=== PATIENT | male | born 1980 | race Caucasian/White ===

== ENCOUNTER 2017-07-17 16:31 | Inpatient (IN) ==
[2017-07-17] MEDS ORDERED: *HR* FentaNYL (PF) 100 MCG/2 ML VIAL IVP ONE ×2 (16:46→19:06)
[2017-07-17] MEDS ORDERED: Ondansetron 4 MG/2 ML VIAL IVP ONE ×2 (16:46→19:06)
--- NOTE | 2017-07-17 16:48 | Emergency Department Note ---
Disposition Clinical Impression: Fever of unknown origin, SIRS (systemic inflammatory response syndrome) Disposition: Home, Self-Care Condition: Undetermined Referrals: NONE,PCP [Primary Care Provider] - Forms: ED Satisfaction Letter, Work/School Release General Adult HPI - General Chief complaint: ED Abdominal Pain Stated complaint: Abdominal Pain Time Seen by Provider: 07/17/17 16:40 - History of Present Illness HPI Narrative: 37M PMHx hypertension currently not on any medications presents with abdominal pain and fever starting at 0300. Patient reports that abd pain was sudden and woke him up, constant, diffuse, does not radiate. He also admits to bilous vomiting x2, unable to keep anything down. Last bowel movement was yesterday and was of normal consistency. Admits to fever of 103F, headaches, numbness of extremities. He denies chest pain, SOB, dysuria. Denies sick contacts. Patient did not have the flu vaccine this year. He denies recent travel. 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 Chronic smoker 20+ years, denies alcohol or IV drug use. Had usual dinner last night. Cannot recall anything that could have caused his sudden abdominal pain. - Related Data Previous Rx's Medication Instructions Recorded Ibuprofen 800 mg PO Q8HR PRN #30 tablet 02/14/17 predniSONE [PredniSONE] 20 mg PO DAILY #18 tablet 02/14/17 Allergies Allergy/AdvReac Type Severity Reaction Status Date / Time No Known Allergies Allergy Verified 07/17/17 16:43 Constitutional: Reports: as per HPI Cardiovascular: Denies: chest pain, palpitations Respiratory: Denies: cough Gastrointestinal: Reports: abdominal pain (diffuse), vomiting Musculoskeletal: Denies: neck pain Neurological: Reports: headache, numbness. Denies: confusion Past Medical History - Past Medical History Medical history: Reports: hypertension Psychiatric history: Reports: no psych history - Social History Smoking Status: Current every day smoker Smokeless Tobacco Status: No Alcohol use: Reports: none Drug use: Reports: none Physical Exam - General Limitations: no limitations General appearance: alert, in distress, obese - Head Head exam: atraumatic, normocephalic, normal inspection - Eye Eye exam: Present: normal appearance, EOMI - Expanded Eye Exam Pupils: Left: reactive - ENT ENT exam: other (erythematous throat) - Expanded ENT Exam External ear exam: Present: normal external inspection Mouth exam: Present: normal external inspection Teeth exam: Present: normal inspection Throat exam: Present: muffled voice - Neck Neck exam: Present: normal inspection, full ROM, trachea midline - Chest Chest inspection: Present: normal inspection, symmetric chest wall rise - Respiratory Respiratory exam: Present: normal lung sounds bilaterally - Cardiovascular Cardiovascular exam: Present: normal rhythm, tachycardia, normal heart sounds - Abdominal Exam Abdominal exam: Present: soft, Non-Tender. Absent: tenderness, distention, guarding, rebound, rigidity - Extremities Exam Extremities exam: Present: normal inspection, full ROM. Absent: tenderness, pedal edema - Expanded Upper Extremity Exam Shoulder exam: Present: normal inspection, full ROM Arm exam: Present: normal inspection, full ROM Elbow exam: Present: normal inspection, full ROM Forearm/Wrist exam: Present: normal inspection, full ROM Hand exam: Present: normal inspection, full ROM Vascular exam: Normal: capillary refill, radial pulse - Expanded Lower Extremity Exam Hip/Pelvis exam: Present: normal inspection, full ROM Upper leg exam: Present: normal inspection, full ROM Knee exam: Present: normal inspection, full ROM Lower leg exam: Present: normal inspection, full ROM Ankle exam: Present: normal inspection, full ROM Foot/toe exam: Present: normal inspection, full ROM Neurovascular/Tendon exam: Absent: motor deficit, sensory deficit, tendon deficit - Back Exam Back exam: Present: normal inspection, full ROM. Absent: tenderness - Neurological Exam Neurological exam: Present: alert, oriented X3 - Expanded Neurological Exam Patient oriented to: Present: person, place, time Coma Scale Eye Opening: Spontaneous Coma Scale Motor Response: Obeys Commands Coma Scale Verbal Response: Oriented Coma Scale Total: 15 - Psychiatric Psychiatric exam: Present: normal affect, normal mood - Skin Skin exam: Present: warm, dry, intact, normal color Course Course Narrative: Patient meets SIRS criteria with tachycardia, 103F, unknown source of infection. Lactate normal. EKG with sinus tachycardia. WBC = 21 noted. BCx, UA, CXR, CT abd/pelvis with contrast pending to determine source of infection. - Reevaluation(s) Reevaluation #1: CT abd/pelvis unremarkable. Patient is currently more concerned about his headache than his abdominal pain. new onset blurry vision. CT head pending. Will consider LP if CT head negative. Time: 18:00 Reevaluation #2: CT Head likely meningitis. Consent for LP signed. Start on one dose Ceftriaxone and Acyclovir. Time: 19:00 Reevaluation #3: Lumbar puncture performed at L2/L3. Clear fluid observed. Pending pathology. Recommend admission if LP positive and for patient to follow-up tomorrow if LP is negative. Vital Signs Temperature 103.0 F H 07/17/17 16:33 Pulse Rate 115 07/17/17 16:33 Respiratory Rate 20 07/17/17 16:33 Blood Pressure 167/99 07/17/17 16:33 O2 Sat by Pulse Oximetry 95 07/17/17 16:33 Temperature 103.0 F H 07/17/17 16:33 Pulse Rate 98 07/17/17 20:37 Respiratory Rate 16 07/17/17 20:37 Blood Pressure 137/87 07/17/17 20:37 O2 Sat by Pulse Oximetry 98 07/17/17 20:37 Oxygen Delivery Oxygen Delivery Room Air Procedures - Lumbar Puncture Consent Obtained: written consent Time Out Performed: Yes Patient Position: upright Skin Prep: Povidone-Iodine 1% Local Anesthetic: lidocaine 1% Amount of anesthesia used (mL): 5 Spinal Needle Gauge: 20G Interspace Used: L3-L4 Fluid Initially Obtained: clear Complications: Need to have other Practitioner Attempt Medical Decision Making - Lab Data Result diagrams: 07/17/17 17:01 07/17/17 17:01 Lab Results 07/17/17 07/17/17 07/17/17 Range/Units 17:01 17:01 17:01 WBC 21.0 H (4.3-11.1) K/mcL RBC 4.99 (4.19-5.50) M/mcL Hgb 14.1 (12.9-16.9) g/dL Hct 42.1 (37.5-50.1) % MCV 84.4 (83.0-100.0) fL MCH 28.3 (28.0-33.3) pg MCHC 33.5 (31.6-35.5) g/dL RDW 14.2 (11.5-14.5) % Plt Count 246 (140-400) K/mcL MPV 10.8 (9.4-12.4) fL Immature Gran % 1.1 (0-4) % Seg Neutrophils % 88.0 % Lymphocytes % 6.3 % Monocytes % 4.5 % Eosinophils % 0.0 % Basophils % 0.1 % Neutrophils # 18.4 H (1.6-8.9) K/mcL Lymphocytes # 1.3 (0.6-4.6) K/mcL Monocytes # 1.0 (0.0-1.3) K/mcL Eosinophils # 0.0 (0.0-0.6) K/mcL Basophils # 0.0 (0.0-0.2) K/mcL Sodium 134 L (136-145) mEq/L Potassium 3.6 (3.5-5.1) mEq/L Chloride 99 (98-107) mEq/L Carbon Dioxide 26 (23-29) mEq/L BUN 11 (6-20) mg/dL Creatinine 0.78 (0.70-1.30) mg/dL Est GFR ( Amer) > 60 (> 60) Est GFR (Non-Af Amer) > 60 (> 60) BUN/Creatinine Ratio 14 (6-26) Glucose 121 H (70-105) mg/dL Calculated Osmolality 279 L (280-300) Lactic Acid 2.1 (0.5-2.2) mmol/L Calcium 9.1 (8.6-10.3) mg/dL Magnesium 1.6 (1.6-2.6) mg/dL Total Bilirubin 0.6 (0.3-1.0) mg/dL Direct Bilirubin 0.1 (0.0-0.2) mg/dL Indirect Bilirubin 0.5 (0.0-1.2) mg/dL AST 14 (13-39) Units/L ALT 16 (7-52) Units/L Alkaline Phosphatase 92 (34-104) Units/L Troponin I 0.03 (< 0.04) ng/mL Serum Total Protein 7.7 (6.4-8.9) g/dL Albumin 4.4 (3.5-5.7) g/dL Globulin 3.3 (2.4-3.5) g/dL Albumin/Globulin Ratio 1.3 (1.1-2.2) Lipase 7 L (11-82) Units/L Urine Color (Yellow) Urine Clarity (Clear) Urine pH (5.0-8.0) pH Units Ur Specific [place] (1.010-1.025) Urine Protein (Neg-Trace) mg/dL Urine Glucose (UA) (Normal) mg/dL Urine Ketones (Negative) mg/dL Urine Blood (Negative) Urine Nitrite (Negative) Urine Bilirubin (Negative) Urine Urobilinogen (Normal) mg/dL Ur Leukocyte Esterase (Negative) Urine Microscopic RBC (0-3) per hpf Urine Microscopic WBC (0-3) per hpf Ur Squamous Epith Cells (None-Few) per lpf Urine Bacteria (None-Few) per hpf Hyaline Casts (None-Few) per lpf Ur Culture Indicated? (NO) 07/17/17 Range/Units 17:29 WBC (4.3-11.1) K/mcL RBC (4.19-5.50) M/mcL Hgb (12.9-16.9) g/dL Hct (37.5-50.1) % MCV (83.0-100.0) fL MCH (28.0-33.3) pg MCHC (31.6-35.5) g/dL RDW (11.5-14.5) % Plt Count (140-400) K/mcL MPV (9.4-12.4) fL Immature Gran % (0-4) % Seg Neutrophils % % Lymphocytes % % Monocytes % % Eosinophils % % Basophils % % Neutrophils # (1.6-8.9) K/mcL Lymphocytes # (0.6-4.6) K/mcL Monocytes # (0.0-1.3) K/mcL Eosinophils # (0.0-0.6) K/mcL Basophils # (0.0-0.2) K/mcL Sodium (136-145) mEq/L Potassium (3.5-5.1) mEq/L Chloride (98-107) mEq/L Carbon Dioxide (23-29) mEq/L BUN (6-20) mg/dL Creatinine (0.70-1.30) mg/dL Est GFR ( Amer) (> 60) Est GFR (Non-Af Amer) (> 60) BUN/Creatinine Ratio (6-26) Glucose (70-105) mg/dL Calculated Osmolality (280-300) Lactic Acid (0.5-2.2) mmol/L Calcium (8.6-10.3) mg/dL Magnesium (1.6-2.6) mg/dL Total Bilirubin (0.3-1.0) mg/dL Direct Bilirubin (0.0-0.2) mg/dL Indirect Bilirubin (0.0-1.2) mg/dL AST (13-39) Units/L ALT (7-52) Units/L Alkaline Phosphatase (34-104) Units/L Troponin I (< 0.04) ng/mL Serum Total Protein (6.4-8.9) g/dL Albumin (3.5-5.7) g/dL Globulin (2.4-3.5) g/dL Albumin/Globulin Ratio (1.1-2.2) Lipase (11-82) Units/L Urine Color Yellow (Yellow) Urine Clarity Clear (Clear) Urine pH 7.0 (5.0-8.0) pH Units Ur Specific [place] 1.025 (1.010-1.025) Urine Protein Trace (Neg-Trace) mg/dL Urine Glucose (UA) Normal (Normal) mg/dL Urine Ketones Negative (Negative) mg/dL Urine Blood Negative (Negative) Urine Nitrite Negative (Negative) Urine Bilirubin Negative (Negative) Urine Urobilinogen Normal (Normal) mg/dL Ur Leukocyte Esterase Negative (Negative) Urine Microscopic RBC 3-5 H (0-3) per hpf Urine Microscopic WBC 0-3 (0-3) per hpf Ur Squamous Epith Cells None Seen (None-Few) per lpf Urine Bacteria None Seen (None-Few) per hpf Hyaline Casts None Seen (None-Few) per lpf Ur Culture Indicated? NO (NO) - EKG Data EKG #1 EKG shows normal: sinus rhythm Rate: tachycardia Rhythm: NSR
[2017-07-17] MEDS: 0.9 % Sodium Chloride 1,000 ML IVC SCH ×2 (16:53→17:06)
[2017-07-17 17:21] LABS: Basophils % 0.1 %; Hematocrit 42.1 % (37.5-50.1); Hemoglobin 14.1 g/dL (12.9-16.9); Immature Granulocytes % 1.1 % (0-4); Lymphocytes # 1.3 K/mcL (0.6-4.6); Lymphocytes % 6.3 %; Mean Corpuscular HGB Conc 33.5 g/dL (31.6-35.5); Mean Corpuscular Hemoglobin 28.3 pg (28.0-33.3); Mean Corpuscular Volume 84.4 fL (83.0-100.0); Mean Platelet Volume 10.8 fL (9.4-12.4); Monocytes % 4.5 %; Neutrophils # 18.4 K/mcL (1.6-8.9); Platelet Count 246 K/mcL (140-400); Red Blood Count 4.99 M/mcL (4.19-5.50); Red Cell Distribution Width 14.2 % (11.5-14.5)
[2017-07-17 17:44] LABS: Alanine Aminotransferase 16 Units/L (7-52); Albumin 4.4 g/dL (3.5-5.7); Albumin/Globulin Ratio 1.3 (1.1-2.2); Alkaline Phosphatase 92 Units/L (34-104); Aspartate Amino Transferase 14 Units/L (13-39); BUN/Creatinine Ratio 14 (6-26); Bilirubin,Direct 0.1 mg/dL (0.0-0.2); Bilirubin,Indirect 0.5 mg/dL (0.0-1.2); Bilirubin,Total 0.6 mg/dL (0.3-1.0); Blood Urea Nitrogen 11 mg/dL (6-20); Calcium 9.1 mg/dL (8.6-10.3); Carbon Dioxide 26 mEq/L (23-29); Chloride 99 mEq/L (98-107); Globulin 3.3 g/dL (2.4-3.5); Glucose 121 mg/dL (70-105); Lipase 7 Units/L (11-82); Magnesium 1.6 mg/dL (1.6-2.6); Osmolality,Calculated 279 (280-300); Potassium 3.6 mEq/L (3.5-5.1); Sodium 134 mEq/L (136-145); Total Protein 7.7 g/dL (6.4-8.9); Troponin I 0.03 ng/mL (< 0.04); eGFR For African Americans > 60 (> 60); eGFR For Non-African Americans > 60 (> 60)
[2017-07-17 17:51] LABS: Bilirubin,Urine Negative (Negative); Blood,Urine Negative (Negative); Clarity,Urine Clear (Clear); Color,Urine Yellow (Yellow); Glucose,Urine (UA) Normal (Normal); Ketones,Urine Negative (Negative); Leukocyte Esterase,Urine Negative (Negative); Nitrite,Urine Negative (Negative); Protein,Urine Trace mg/dL (Neg-Trace); Specific Gravity,Urine 1.025 (1.010-1.025); Urobilinogen,Urine Normal (Normal)
[2017-07-17 17:56] LABS: Bacteria,Urine None Seen per hpf (None-Few); Hyaline Casts,Urine None Seen per lpf (None-Few); Squamous Epithelial Cell,Urine None Seen per lpf (None-Few); WBC,Urine 0-3 per hpf (0-3)
[2017-07-17] MEDS ORDERED: Isovue-370 500 ML INFUS..BTL IV ONE (17:58)
[2017-07-17] MEDS ORDERED: Acetaminophen 325 MG TABLET PO ONE (18:03)
[2017-07-17] MEDS ORDERED: cefTRIAXone 2,000 MG in Water for inj. (sterile) 20 ML 20 ML IVP ONE (19:47)
[2017-07-17] MEDS ORDERED: Acyclovir 500 MG in D5% in Water 100 ML IVPB ONE (19:49)
[2017-07-17 20:50] LABS: Red Blood Cell,CSF < 0.002 M/mcL
[2017-07-17 20:51] LABS: Appearance,CSF Clear (Clear)
[2017-07-17 21:16] LABS: Glucose,CSF 77 mg/dL (40-70); Total Protein,CSF 53 mg/dL (15-45)
[2017-07-17] MEDS ORDERED: Naloxone 0.4 MG/ML INJ IVP PRN (23:06)
[2017-07-17] MEDS ORDERED: Acetaminophen 325 MG TABLET PO PRN (23:06)
--- NOTE | 2017-07-17 23:56 | Internal Med History&Physical ---
Date of Encounter: 07/17/17 Time of Encounter: 21:00 Internal Medicine - H&P: HPI Chief complaint: Headache and a fever Admitted From: Home Plans for Post Hospital Care: Home History of present illness: Mr. Torres is a 37 year old male presented to ER for headache and fever. Patient is generally in good health without significant past medical history. Patient said that since this morning he feels sick, with headache, which is sharp pain, 10 out of 10. Patient has fever with temperature 103 in ER. Patient has nausea, and vomited several times. The vomiting are yellowish fluid , no blood in it. Patient denies runny nose, sore throat, cough, abdominal pain , diarrhea, or urination symptoms. Patient denies any wound or skin infection. Patient denies double elevation or blurred vision. He complained of photophobia. In the emergency room, lab shows leukocytosis. Patient was suspected meningitis and lumbar puncture has been done. Patient was started on IV fluid, Rocephin, and acyclavir. After treatment, patient's symptoms has improved. Patient was admitted for further management. Past Med Surg Social Fam HX - Past Medical History Medical history: hypertension Psychiatric history: no psych history - Past Surgical History Additional surgical history: Ankle surgery. - Social History Smoking Status: Current every day smoker Packs per day: 2 Smokeless Tobacco Status: No Alcohol use: none Drug use: none - Family History Mother History Unknown: Yes Internal Medicine - H&P: Meds No Known Home Drugs 07/17/17 [History] 3 Allergy/AdvReac Type Severity Reaction Status Date / Time No Known Allergies Allergy Verified 07/17/17 21:02 All Systems PM: A 10-system review of systems was performed and is negative for pertinent findings except as documented above in the HPI. - Constitutional Vitals: Temp Pulse Resp BP Pulse Ox 99.9 F H 89 18 101/58 98 07/17/17 23:25 07/17/17 23:25 07/17/17 23:25 07/17/17 23:25 07/17/17 23:25 General appearance: Present: A&O X 3, no acute distress, answers questions appropriately - Head Head exam: Present: atraumatic, normocephalic - Eye Eye exam: Present: PERRL, conjuntiva pink, sclera anicteric Pupils: Present: PERRL - Neck Neck exam general surgery: Present: supple, trachea midline. Absent: lymphadenopathy, nuchal rigidity - Respiratory Respiratory exam: Present: CTAB. Absent: accessory muscle use, rales, rhonchi, wheezes - Cardiovascular Cardiovascular exam: Present: RRR, +S1, +S2. Absent: diastolic murmur, gallop, rubs, systolic murmur - GI/Abdominal GI/Abdominal exam: Present: normal bowel sounds, soft, no peritoneal signs. Absent: distended, tenderness - Extremities Exam Extremities exam: Present: warm, radial pulses palpable and symmetrical. Absent : calf tenderness, cyanotic, pedal edema - Neurological Exam Neurological exam: Present: CN II-XII intact, oriented X3, no focal deficits. Absent: pronater drift, facial droop, speech deficit - Skin Skin exam: Present: dry, intact Internal Med - H&P Results - Labs CBC & Chem 7: 07/17/17 17:01 07/17/17 17:01 - Assessment and plan (1) Headache Current Visit: Yes Status: Acute Assessment and plan: Patient has headache with fever and leukocytosis. No nuchal rigidity. CSF analysis shows mild elevated glucose and protein, otherwise unremarkable. Results do not support bacterial meningitis. Culture and HSV PCR is pending. - Continue acyclovir until HSV PCR negative. - Closely monitor patient - CT head negative, CSF analysis shows negative xanthrochromia, SAH is unlikely. Qualifiers: Headache type: unspecified Headache chronicity pattern: acute headache Intractability: not intractable Qualified Code(s): R51 - Headache (2) DVT prophylaxis Current Visit: Yes Status: Acute Assessment and plan: Patient is young and ambulating well. No anticoagulation is placed. (3) Fever of unknown origin Current Visit: Yes Status: Acute Assessment and plan: Patient had head CT, chest x-ray, and abdominal CT. Unremarkable results so far. Blood culture has been done. Patient denies IV drug use. Will continue empiric antibiotics Rocephin and follow-up blood culture. (4) SIRS (systemic inflammatory response syndrome) Current Visit: Yes Status: Acute Assessment and plan: Patient to meet SIRS criteria with leukocytosis and fever. Unclear infectious sourse. - Empirically cont rocephin and acyclovir - Cont IVF - Follow lactate level. - Closely monitor pt. - Follow up blood culture, CSF culture, and HSV PCR in CSF. - Time Spent With Patient Total time spent is greater than 50% in coordination of care (as documented) at patient's floor/unit and/or counseling patient:
[2017-07-18] MEDS ORDERED: Acyclovir 500 MG in D5% in Water 100 ML IVPB SCH
[2017-07-18] MEDS: *HR* HYDROcodone/Acet 5/325 mg TABLET PO PRN ×3 (00:09→13:56)
[2017-07-18] MEDS: 0.9 % Sodium Chloride 1,000 ML IVC SCH ×3 (00:09→18:07)
[2017-07-18] MEDS: Nicotine 21 MG PATCH.TD24 TD SCH ×3 (00:47→07:59)
[2017-07-18 03:38] LABS: Basophils % 0.1 %; Hematocrit 36.5 % (37.5-50.1); Immature Granulocytes % 0.5 % (0-4); Lymphocytes # 1.6 K/mcL (0.6-4.6); Lymphocytes % 10.9 %; Mean Corpuscular HGB Conc 33.4 g/dL (31.6-35.5); Mean Corpuscular Hemoglobin 28.1 pg (28.0-33.3); Mean Corpuscular Volume 84.1 fL (83.0-100.0); Mean Platelet Volume 10.4 fL (9.4-12.4); Monocytes % 6.8 %; Neutrophils # 12.2 K/mcL (1.6-8.9); Platelet Count 182 K/mcL (140-400); Red Blood Count 4.34 M/mcL (4.19-5.50); Red Cell Distribution Width 14.5 % (11.5-14.5); Segmented Neutrophils % 81.7 %
[2017-07-18 03:51] LABS: Hemoglobin 12.2 g/dL (12.9-16.9)
[2017-07-18 03:57] LABS: BUN/Creatinine Ratio 13 (6-26); Blood Urea Nitrogen 9 mg/dL (6-20); Carbon Dioxide 25 mEq/L (23-29); Chloride 105 mEq/L (98-107); Potassium 3.5 mEq/L (3.5-5.1); Sodium 135 mEq/L (136-145)
[2017-07-18 03:58] LABS: Calcium 8.4 mg/dL (8.6-10.3); Glucose 130 mg/dL (70-105); Magnesium 1.7 mg/dL (1.6-2.6); Osmolality,Calculated 280 (280-300); eGFR For African Americans > 60 (> 60); eGFR For Non-African Americans > 60 (> 60)
[2017-07-18] MEDS: Acyclovir 500 MG in D5% in Water 100 ML IVPB SCH ×3 (04:27→19:48)
[2017-07-18] MEDS ORDERED: *HR* OxyCODONE Immed Rel 5 MG TABLET PO ONE (09:07)
[2017-07-18] MEDS ORDERED: Ketorolac 30 MG/ML VIAL IVP ONE (15:43)
--- NOTE | 2017-07-18 17:42 | Electrocardiograph Report ---
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
--- NOTE | 2017-07-18 17:52 | Internal Med Progress Note ---
Date of Encounter: 07/18/17 Time of Encounter: 17:49 - Assessment and plan (1) Fever of unknown origin Current Visit: Yes Status: Acute (2) SIRS (systemic inflammatory response syndrome) Current Visit: Yes Status: Acute (3) Headache Current Visit: Yes Status: Acute Qualifiers: Headache type: unspecified Headache chronicity pattern: acute headache Intractability: not intractable Qualified Code(s): R51 - Headache (4) DVT prophylaxis Current Visit: Yes Status: Acute (5) Cellulitis of right lower extremity Current Visit: Yes Status: Acute - Time Spent With Patient Discussed with patient treatment plan, continue current antibiotic, awaiting final culture, ernst chan lower extremities. We will consult infectious disease. Ambulate Total time spent is greater than 50% in coordination of care (as documented) at patient's floor/unit and/or counseling patient: 25 - 35 minutes - Subjective Interval history: Patient stated that that his headache is improved. Patient denies any neck stiffness. Patient denies any motor or sensory changes. Patient denies any visual changes. - Constitutional Vitals: Temp Pulse Resp BP Pulse Ox 98.8 F 89 17 104/58 95 07/18/17 16:29 07/18/17 16:29 07/18/17 16:29 07/18/17 16:29 07/18/17 16:29 General appearance: Present: A&O X 3, no acute distress, answers questions appropriately - Head Head exam: Present: atraumatic, normocephalic - Neck Neck exam general surgery: Present: supple, trachea midline. Absent: lymphadenopathy, tenderness, nuchal rigidity - Respiratory Respiratory exam: Present: CTAB. Absent: accessory muscle use, rales, rhonchi, wheezes - Cardiovascular Cardiovascular exam: Present: RRR, +S1, +S2. Absent: diastolic murmur, gallop, rubs, systolic murmur - Extremities Exam Extremities exam: Present: pedal edema (Right lower extremity erythema and edema positive 2), warm, radial pulses palpable and symmetrical. Absent: cyanotic - Neurological Exam Neurological exam: Present: CN II-XII intact, oriented X3, no focal deficits. Absent: pronater drift, facial droop, speech deficit Internal Medicine: Result - Labs CBC & Chem 7: 07/18/17 03:24 07/18/17 03:24 Labs: Short CBC 07/18/17 Range/Units 03:24 WBC 14.9 H (4.3-11.1) K/mcL Hgb 12.2 L D (12.9-16.9) g/dL Hct 36.5 L (37.5-50.1) % Plt Count 182 (140-400) K/mcL Neutrophils # 12.2 H (1.6-8.9) K/mcL BMP 07/18/17 03:24 Sodium 135 L Potassium 3.5 Chloride 105 Carbon Dioxide 25 BUN 9 Creatinine 0.68 L Glucose 130 H Calcium 8.4 L Consult Discharge Plan - Plan Referrals: NONE,PCP [Primary Care Provider] -
[2017-07-18] MEDS: cefTRIAXone 2,000 MG in Water for inj. (sterile) 20 ML 20 ML IVP SCH (18:08)
[2017-07-18] MEDS ORDERED: Melatonin 3 MG TABLET PO PRN (22:42)
[2017-07-19] MEDS: *HR* HYDROcodone/Acet 5/325 mg TABLET PO PRN ×4 (01:11→21:26)
[2017-07-19 01:25] LABS: Basophils % 0.2 %; Eosinophils % 0.2 %; Hemoglobin 11.6 g/dL (12.9-16.9); Immature Granulocytes % 0.5 % (0-4); Lymphocytes # 1.9 K/mcL (0.6-4.6); Lymphocytes % 14.4 %; Mean Corpuscular HGB Conc 33.1 g/dL (31.6-35.5); Mean Corpuscular Hemoglobin 28.3 pg (28.0-33.3); Mean Corpuscular Volume 85.4 fL (83.0-100.0); Mean Platelet Volume 11.3 fL (9.4-12.4); Monocytes % 7.9 %; Neutrophils # 9.9 K/mcL (1.6-8.9); Platelet Count 178 K/mcL (140-400); Red Cell Distribution Width 14.4 % (11.5-14.5); Segmented Neutrophils % 76.8 %
[2017-07-19 01:45] LABS: BUN/Creatinine Ratio 14 (6-26); Blood Urea Nitrogen 8 mg/dL (6-20); Calcium 8.3 mg/dL (8.6-10.3); Carbon Dioxide 23 mEq/L (23-29); Chloride 108 mEq/L (98-107); Glucose 123 mg/dL (70-105); Magnesium 1.8 mg/dL (1.6-2.6); Osmolality,Calculated 282 (280-300); Phosphorous 2.1 mg/dL (2.7-4.5); Potassium 3.7 mEq/L (3.5-5.1); Sodium 136 mEq/L (136-145); eGFR For African Americans > 60 (> 60); eGFR For Non-African Americans > 60 (> 60)
[2017-07-19] MEDS: 0.9 % Sodium Chloride 1,000 ML IVC SCH ×2 (04:58→14:45)
[2017-07-19] MEDS: Acyclovir 500 MG in D5% in Water 100 ML IVPB SCH ×3 (04:58→19:23)
[2017-07-19] MEDS: Nicotine 21 MG PATCH.TD24 TD SCH ×2 (08:01→12:03)
--- NOTE | 2017-07-19 10:59 | Internal Med Progress Note ---
Date of Encounter: 07/19/17 Time of Encounter: 10:59 - Assessment and plan (1) SIRS (systemic inflammatory response syndrome) Current Visit: Yes Status: Acute Assessment and plan: likely due to RLE cellulitis, but will rule out bacterial and aseptic meningitis improving but still febrile WBC 21k --> 13k on ABx (2) Headache Current Visit: Yes Status: Acute Assessment and plan: CSF cultures in progress cont vanc/acyclovir/ceftriaxone at this time HSV PCR pending Qualifiers: Headache type: unspecified Headache chronicity pattern: acute headache Intractability: not intractable Qualified Code(s): R51 - Headache (3) Cellulitis of right lower extremity Current Visit: Yes Status: Acute Assessment and plan: extensive, with SIRS, still needs IV ABx IV ceftriaxone - Time Spent With Patient Total time spent is greater than 50% in coordination of care (as documented) at patient's floor/unit and/or counseling patient: - Subjective Interval history: some headache, no neck pain or stiffness no cough, sputum, nausea, vomiting, abd pain, d, c Right leg redness and pain - Constitutional Vitals: Temp Pulse Resp BP Pulse Ox 99.5 F 87 16 171/91 94 07/19/17 07:37 07/19/17 07:37 07/19/17 07:37 07/19/17 07:37 07/19/17 07:37 General appearance: Present: A&O X 3, no acute distress, answers questions appropriately - Head Head exam: Present: atraumatic, normocephalic - Eye Eye exam: Present: PERRL, conjuntiva pink, sclera anicteric Pupils: Present: PERRL (no photosensitivity) - Neck Neck exam general surgery: Present: supple, trachea midline. Absent: nuchal rigidity - Respiratory Respiratory exam: Present: CTAB. Absent: accessory muscle use, rales, rhonchi, wheezes - Cardiovascular Cardiovascular exam: Present: RRR, +S1, +S2. Absent: diastolic murmur, gallop, rubs, systolic murmur - GI/Abdominal GI/Abdominal exam: Present: normal bowel sounds, soft, no peritoneal signs. Absent: distended, guarding, tenderness - Extremities Exam Extremities exam: Present: calf tenderness (right leg), tenderness (right leg), warm, radial pulses palpable and symmetrical. Absent: cyanotic, pedal edema Additional comments: right leg extensive erythema, warmth and some tenderness not extending from marked margins - Neurological Exam Neurological exam: Present: alert, oriented X3, no focal deficits. Absent: facial droop, speech deficit - Skin Skin exam: Present: erythema (right leg as above) Internal Medicine: Result - Labs CBC & Chem 7: 07/19/17 01:00 07/19/17 01:00 Labs: Short CBC 07/19/17 Range/Units 01:00 WBC 12.9 H (4.3-11.1) K/mcL Hgb 11.6 L (12.9-16.9) g/dL Hct 35.0 L (37.5-50.1) % Plt Count 178 (140-400) K/mcL Neutrophils # 9.9 H (1.6-8.9) K/mcL BMP 07/19/17 01:00 Sodium 136 Potassium 3.7 Chloride 108 H Carbon Dioxide 23 BUN 8 Creatinine 0.59 L Glucose 123 H Calcium 8.3 L - VTE Documentation of Mechanical Device: Venous foot pump, device Consult Discharge Plan - Plan Referrals: NONE,PCP [Primary Care Provider] -
[2017-07-19] MEDS: Ondansetron 4 MG/2 ML VIAL IVP PRN ×2 (16:38→21:26)
[2017-07-19] MEDS: cefTRIAXone 2,000 MG in Water for inj. (sterile) 20 ML 20 ML IVP SCH (17:41)
[2017-07-20] MEDS: Acyclovir 500 MG in D5% in Water 100 ML IVPB SCH ×3 (03:00→19:35)
[2017-07-20] MEDS: *HR* HYDROcodone/Acet 5/325 mg TABLET PO PRN ×2 (03:03→10:39)
[2017-07-20 05:16] LABS: Hematocrit 34.3 % (37.5-50.1); Hemoglobin 11.4 g/dL (12.9-16.9); Mean Corpuscular HGB Conc 33.2 g/dL (31.6-35.5); Mean Corpuscular Volume 84.3 fL (83.0-100.0); Mean Platelet Volume 11.1 fL (9.4-12.4); Platelet Count 250 K/mcL (140-400); Red Blood Count 4.07 M/mcL (4.19-5.50); Red Cell Distribution Width 14.1 % (11.5-14.5)
[2017-07-20 05:39] LABS: BUN/Creatinine Ratio 10 (6-26); Blood Urea Nitrogen 6 mg/dL (6-20); Calcium 8.5 mg/dL (8.6-10.3); Carbon Dioxide 24 mEq/L (23-29); Chloride 107 mEq/L (98-107); Glucose 120 mg/dL (70-105); Magnesium 1.6 mg/dL (1.6-2.6); Osmolality,Calculated 285 (280-300); Potassium 3.2 mEq/L (3.5-5.1); Sodium 138 mEq/L (136-145); eGFR For African Americans > 60 (> 60); eGFR For Non-African Americans > 60 (> 60)
--- NOTE | 2017-07-20 08:22 | Internal Med Progress Note ---
Date of Encounter: 07/20/17 Time of Encounter: 08:20 - Assessment and plan (1) SIRS (systemic inflammatory response syndrome) Current Visit: Yes Status: Resolved Assessment and plan: on Abx, likely RLE cellulitis, but cannot r/o meningitis (2) Headache Current Visit: Yes Status: Acute Assessment and plan: recurrent, cont treatment for aseptic meningitis until PCR resulted Qualifiers: Headache type: unspecified Headache chronicity pattern: acute headache Intractability: not intractable Qualified Code(s): R51 - Headache (3) Cellulitis of right lower extremity Current Visit: Yes Status: Acute Assessment and plan: Once meningitis ruled out, will de-escalate Abx for RLE cellulitis, currently covered by vanc =+ ceftriaxone, was extensive celluliti sin presentation (4) Elevated blood pressure reading Current Visit: Yes Status: Acute Assessment and plan: in the setting o acute illness, pain monitorfor develpment of HTN (5) Hypokalemia Current Visit: Yes Status: Acute Assessment and plan: replete - Time Spent With Patient Total time spent is greater than 50% in coordination of care (as documented) at patient's floor/unit and/or counseling patient: - Subjective Interval history: had more headache, and neck pain without stiffness last ngiht no cough, sputum, nausea, vomiting, abd pain, d, c Right leg redness is present, pain is resolving, and now it is itchy - Constitutional Vitals: Temp Pulse Resp BP Pulse Ox 98.0 F 78 18 165/100 95 07/20/17 06:45 07/20/17 06:45 07/20/17 06:45 07/20/17 06:45 07/20/17 06:45 General appearance: Present: mild distress, A&O X 3, obese, answers questions appropriately - Head Head exam: Present: atraumatic, normocephalic - Eye Eye exam: Present: PERRL, conjuntiva pink, sclera anicteric Pupils: Present: PERRL - Neck Neck exam general surgery: Present: supple, trachea midline. Absent: lymphadenopathy, nuchal rigidity - Respiratory Respiratory exam: Present: CTAB. Absent: accessory muscle use, rales, rhonchi, wheezes - Cardiovascular Cardiovascular exam: Present: RRR, +S1, +S2. Absent: diastolic murmur, gallop, rubs, systolic murmur - GI/Abdominal GI/Abdominal exam: Present: normal bowel sounds, soft, no peritoneal signs. Absent: distended, guarding, rebound, tenderness - Extremities Exam Extremities exam: Present: warm, radial pulses palpable and symmetrical. Absent : cyanotic, pedal edema Additional comments: Right lower extremity eryehema has started to recede from the marked margins, but is still present up to mid bliss, warmth has decreased - Neurological Exam Neurological exam: Present: CN II-XII intact, oriented X3, no focal deficits. Absent: pronater drift, facial droop, speech deficit - Skin Skin exam: Present: dry, intact Additional comments: RLE exam as above Internal Medicine: Result - Labs CBC & Chem 7: 07/20/17 04:38 07/20/17 04:38 Labs: Short CBC 07/20/17 Range/Units 04:38 WBC 12.1 H (4.3-11.1) K/mcL Hgb 11.4 L (12.9-16.9) g/dL Hct 34.3 L (37.5-50.1) % Plt Count 250 (140-400) K/mcL BMP 07/20/17 04:38 Sodium 138 Potassium 3.2 L Chloride 107 Carbon Dioxide 24 BUN 6 Creatinine 0.60 L Glucose 120 H Calcium 8.5 L - VTE Documentation of Mechanical Device: Venous foot pump, device Consult Discharge Plan - Plan Referrals: NONE,PCP [Primary Care Provider] -
[2017-07-20] MEDS: 0.9 % Sodium Chloride 1,000 ML IVC SCH (10:19)
[2017-07-20] MEDS: Nicotine 21 MG PATCH.TD24 TD SCH (12:36)
[2017-07-20 15:12] LABS: HSV Source CSF
[2017-07-20] MEDS: cefTRIAXone 2,000 MG in Water for inj. (sterile) 20 ML 20 ML IVP SCH (17:16)
[2017-07-20] MEDS: Ondansetron 4 MG/2 ML VIAL IVP PRN (17:16)
[2017-07-21] MEDS: Acyclovir 500 MG in D5% in Water 100 ML IVPB SCH (03:56)
[2017-07-21 04:15] LABS: Hemoglobin 12.2 g/dL (12.9-16.9); Mean Corpuscular HGB Conc 34.9 g/dL (31.6-35.5); Mean Corpuscular Hemoglobin 28.6 pg (28.0-33.3); Mean Corpuscular Volume 82.2 fL (83.0-100.0); Mean Platelet Volume 11.2 fL (9.4-12.4); Platelet Count 326 K/mcL (140-400); Red Blood Count 4.26 M/mcL (4.19-5.50); Red Cell Distribution Width 14.1 % (11.5-14.5)
[2017-07-21 06:12] LABS: BUN/Creatinine Ratio 11 (6-26); Blood Urea Nitrogen 7 mg/dL (6-20); Calcium 9.1 mg/dL (8.6-10.3); Carbon Dioxide 27 mEq/L (23-29); Chloride 103 mEq/L (98-107); Glucose 120 mg/dL (70-105); Osmolality,Calculated 283 (280-300); Potassium 3.7 mEq/L (3.5-5.1); Sodium 137 mEq/L (136-145); eGFR For African Americans > 60 (> 60); eGFR For Non-African Americans > 60 (> 60)
[2017-07-21] MEDS: Ondansetron 4 MG/2 ML VIAL IVP PRN (07:44)
[2017-07-21] MEDS: 0.9 % Sodium Chloride 1,000 ML IVC SCH (09:04)
[2017-07-21 11:13] VITALS: BP 147/89
--- NOTE | 2017-07-21 11:14 | Infectious Disease Consult ---
Date of Encounter: 07/21/17 Time of Encounter: 11:07 Assessment and Plan (1) Sepsis Status: Acute Assessment and plan: Patient presented with 4/4 SIRS criteria with leukocytosis, fever, tachycardia, tachypnea Source and causative agent are unclear at this time but suspect upper respiratory viral infection vs. cellulitis Initial CT head, abdomen and pelvis negative for any acute process Patient has been on Acyclovir, Rocephin, and Vancomycin since admission Blood and CSF cultures remain negative Plan as below Qualifiers: Sepsis type: sepsis due to unspecified organism Qualified Code(s): A41.9 - Sepsis, unspecified organism (2) Cellulitis Status: Acute Assessment and plan: Causative organism unclear Currently on day 5 of Rocephin and 4 of Vancomycin with improvement of symptoms Recommend switching Rocephin to 1 gram daily If ready for discharge, recommend 7 days of Doxycycline and Keflex Qualifiers: Site of cellulitis: extremity Site of cellulitis of extremity: lower extremity Laterality: right Qualified Code(s): L03.115 - Cellulitis of right lower limb (3) Headache Status: Acute Assessment and plan: CSF studies ruled out meningitis and HSV PCR negative Symptoms possibly related to viral syndrome Discontinue Acyclovir after receiving [address] negative for acute process Qualifiers: Headache type: unspecified Headache chronicity pattern: acute headache Intractability: not intractable Qualified Code(s): R51 - Headache (4) Hypertension Status: Chronic Qualifiers: Hypertension type: essential hypertension Qualified Code(s): I10 - Essential (primary) hypertension Infectious Disease HPI - Data of Consult Patient: new to practice Requesting Physician: Noah Dorado MD Primary Care Provider: PCP NONE - Consult Narrative Reason for consult: possible meningitis, right leg cellulitis History of present illness: Mr. Torres is a 37 year old male with possible history of hypertension who was admitted on July 17 for headache and fever. We are being consulted for possible meningitis and management right leg cellulitis. Patient is a 37-year-old male with past history as stated above. He states that last he woke up feeling chills and had a fever of 104 measured at home. He also had a neck pain and headache that was severe, located in the front and back of his head. He also described having photophobia but denied any other visual disturbances. He denied having any similar episodes in the past and has no history of migraines. Upon presentation to the ED, he had a temperature of 103, was tachycardic at 115, 20 respiratory rate. His initial white blood count was 21. Lumbar puncture was obtained and he was started on Rocephin and Acyclovir. CSF fluid analysis showed clear fluid with total nucleated cells of 4 without neutrophils or lymphocytes, glucose of 77, protein of 55. Patient also noted right lower leg swelling and redness that and was started on Vancomycin for cellulitis. CAT scan of the head, abdomen, pelvis were negative. Initial blood cultures remain negative and his CSF culture and herpes PCR were also negative. He denied any recent travel, observations, sick contacts, antibiotic use. He states that he is up-to-date with his vaccinations. 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 He lives at home with his parents and son. During today's exam, patient states that his headache is much improved, and complains of mild right-sided head pain. He also has mild pain in his right leg. He denies any fevers, chills, nausea, vomiting, diarrhea. He states that his right leg swelling has improved greatly and only noticed mild redness and warmth. CC: Noah Dorado MD Past Med Surg Social Fam HX - Past Medical History Medical history: hypertension Psychiatric history: no psych history - Past Surgical History Additional surgical history: Ankle surgery. - Social History Smoking Status: Current every day smoker Packs per day: 2 Smokeless Tobacco Status: No Alcohol use: none Drug use: none - Family History Mother History Unknown: Yes Infectious Disease-CN:Meds Cephalexin [Keflex] 500 mg PO BID #12 capsule 07/21/17 [Rx] 3 Allergy/AdvReac Type Severity Reaction Status Date / Time No Known Allergies Allergy Verified 07/17/17 21:02 - Constitutional Constitutional: Present: chills, fever(s), headache(s) - Cardiovascular Cardiovascular: Absent: chest pain, dyspnea, dyspnea on exertion, edema, pedal edema, rapid heart rate - Respiratory Respiratory: Absent: cough, dyspnea, hemoptysis, wheezing, chest congestion - Gastrointestinal Gastrointestinal: Present: nausea, vomiting - Genitourinary Genitourinary: urinary frequency - Musculoskeletal Musculoskeletal: Absent: numbness, tingling - Integumentary Integumentary: Present: erythema, swelling Exam - Constitutional Vitals: Temp Pulse Resp BP Pulse Ox 98.2 F 80 18 162/84 93 07/21/17 06:33 07/21/17 06:33 07/21/17 06:33 07/21/17 06:33 07/21/17 06:33 General appearance: cooperative, no acute distress, obese - Head Head exam: Present: atraumatic, normocephalic - Respiratory Respiratory exam: Present: CTAB. Absent: accessory muscle use, decreased breath sounds, respiratory distress, stridor - Cardiovascular Cardiovascular exam: Present: RRR. Absent: bradycardia, irregular rhythm, systolic murmur, tachycardia - GI/Abdominal GI/Abdominal exam: Present: normal bowel sounds, soft. Absent: tenderness - Extremities Exam Extremities exam: Present: tenderness. Absent: pedal edema - Skin Skin exam: Present: erythema (medial aspect of right lower leg), warm Infectious Disease CN: Results - Labs CBC & Chem 7: 07/21/17 03:55 07/21/17 05:37 - VTE Documentation of Mechanical Device: Graduated compression elastic hosiery Consult Discharge Plan - Plan Instructions: Cephalexin (By mouth), Cellulitis (DC) Additional Instructions: Please establish contact and follow-up with a primary care provider within 4 weeks of discharge. Referrals: NONE,PCP [Primary Care Provider] - (Patient states mother will f/u to establish new primary care physician) Prescriptions: Cephalexin [Keflex] 500 mg PO BID #12 capsule - Attending Attestation Patient was discharged before I could see and evaluate and make recommendations.
[2017-07-21] MEDS: *HR* HYDROcodone/Acet 5/325 mg TABLET PO PRN (12:17)
--- NOTE | 2017-07-21 12:51 | Discharge Summary ---
Date of Encounter: 07/21/17 Time of Encounter: 12:30 - Discharge Diagnosis (1) Cellulitis of right lower extremity Priority: Primary Status: Acute Assessment and Plan: Patient received 4 days of vancomycin. We will finish 6 more days of Keflex. (2) Fever of unknown origin Priority: Secondary Status: Resolved Assessment and Plan: Patient had head CT, chest x-ray, and abdominal CT. Unremarkable results so far. Blood cultures Sent on 07/17/2017 and negative to date. He has cellulitis of the right lower extremity with erythema and edema suggestive of the underlying source. (3) SIRS (systemic inflammatory response syndrome) Priority: Primary Status: Resolved (4) Headache Priority: Primary Status: Acute Assessment and Plan: Patient has headache with fever and leukocytosis. No nuchal rigidity. CSF analysis shows mild elevated glucose and protein, otherwise unremarkable. Results do not support bacterial meningitis. HSV PCR is negative. CT head negative. Symptoms have resolved Qualifiers: Headache type: unspecified Headache chronicity pattern: acute headache Intractability: not intractable Qualified Code(s): R51 - Headache Hospital course: Mr. Torres is a 37 year old male who presented with fever 103 and headache on admission. A lumbar puncture was performed and CSF analysis ruled out meningitis. CT head was negative. His symptoms over the proceeding these resolved. Additional note was made of leukocytosis. He reported a right lower extremity rash. This was followed over the next few days. This is suggestive most likely of cellulitis. Patient will finish a total of 10 days of antibiotics. Discharge discussed with: patient - Time Spent with Patient Total time spent providing and/or coordinating discharge services: Greater than 30 minutes - Discharge Medications Prescriptions: Cephalexin [Keflex] 500 mg PO BID #12 capsule Home Medications: Cephalexin [Keflex] 500 mg PO BID #12 capsule 07/21/17 [Rx] Allergies/Adverse Reactions: 3 Allergy/AdvReac Type Severity Reaction Status Date / Time No Known Allergies Allergy Verified 07/17/17 21:02 Date of admission: 07/17/17 23:06 Primary care physician: PCP NONE Consults: 07/18/17 17:53 Consult to Infectious Diseases [CONS] Routine Consulting Provider: Infectious Disease [place] Reason for Consult: cellulitis, possible meningitis Call Completed: No Discharging clinician: Adrianne Delgado Anticipated date of discharge: 06/11/18 - Constitutional Vitals: Temp Pulse Resp BP Pulse Ox 98.3 F 80 16 147/89 96 07/21/17 11:08 07/21/17 11:08 07/21/17 11:08 07/21/17 11:08 07/21/17 11:08 General appearance: Present: mild distress, A&O X 3, obese, answers questions appropriately Exam: Physical exam Gen: Comfortable, laying in bed, in no visible distress HEENT: Normocephalic, atraumatic. No conjunctival icterus. Moist oral mucosa. Neck: Supple Lungs: Clear to auscultation, no foreign sounds Heart: Normal S1-S2, no murmurs rubs or gallops Abdomen: Normoactive bowel sounds, no guarding rigidity or tenderness Extremities: No edema clubbing or cyanosis Neuro: Alert oriented 3, no focal deficits Skin: Erythema of the right lower extremity - Patient Status Disposition: Home, Self-Care Condition: Good Functional capacity at discharge: independent ambulation Overall status at discharge: patient is back to baseline - Discharge Instructions Follow Up With: NONE,PCP [Primary Care Provider] - Additional Instructions: Please establish contact and follow-up with a primary care provider within 4 weeks of discharge. - Diet and Activity Activity: resume usual activities as tolerated Diet: advance to your usual diet - VTE Documentation of Mechanical Device: Graduated compression elastic hosiery
[2017-07-21] MEDS ORDERED: Aminoglycoside Consult 1 EACH MC ONE (14:49)
[2017-07-22] MEDS ORDERED: cefTRIAXone 1,000 MG in Water for inj. (sterile) 20 ML 10 ML IVP SCH (09:00)
== END 2017-07-21 14:50 | disposition home or self-care (01) | DRG 872 ==
LOC: EMEROO 16:31 → 3NENU 16:31 → 3BNU 07-21 10:46
PROVIDERS: ADMIT Internal Medicine; ATTEND Internal Medicine